=== PATIENT | male | born 1965 | race Two or more races ===

== ENCOUNTER 2018-08-22 10:15 | Emergency (ER) | payer OTHER ==
--- NOTE | 2018-08-22 11:07 | ER Document Report ---
ED Medical Screen (RME) - General Chief Complaint: Palpitations Stated Complaint: CHEST PAIN Time Seen by Provider: 08/22/18 11:05 Mode of Arrival: Wheelchair Information source: Patient Notes: This 53-year-old male presents to the emergency department with reports of shortness of breath palpitations lightheadedness, dizzy. Patient reports he had the same symptoms yesterday when he went home after work and took a shower he felt better. 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 When he went to work today he started having the same symptoms feeling short of breath dizzy like his heart was racing. He sat down and he started seeing double vision. He reports he had the same symptoms a couple months ago and was evaluated by his primary care provider and they did not find anything wrong. Patient reports he has been been hydrated. Reports he is a borderline diabetic and borderline hypertension. Denies history of cardiac disease. Reports he [place] on [place] [facility] during the week and then drives home to [place] on [place] [facility] on the weekends. EEG shows sinus rhythm. Respiratory rate even unlabored. I have greeted and performed a rapid initial assessment of this patient. A comprehensive ED assessment and evaluation of the patient, analysis of test results and completion of the medical decision making process will be conducted by additional ED providers. Dictation of this chart was performed using voice recognition software; therefore, there may be some unintended grammatical errors. TRAVEL OUTSIDE OF THE [place] IN LAST 30 DAYS: No - Related Data Allergies/Adverse Reactions: Penicillins Allergy (Verified 08/22/18 10:16) Past Medical History - Social History Chew tobacco use (# tins/day): No Frequency of alcohol use: Rare Drug Abuse: None - Past Medical History Cardiac Medical History: Reports: Hx Hypertension Renal/ Medical History: Denies: Hx Peritoneal Dialysis Past Surgical History: Reports: Hx Appendectomy Physical Exam - Vital signs Vitals: Temp Pulse Resp BP Pulse Ox 97.7 F 92 15 90/63 L 95 08/22/18 10:34 08/22/18 10:34 08/22/18 10:34 08/22/18 10:34 08/22/18 10:34 Course - Vital Signs Vital signs: Temp Pulse Resp BP Pulse Ox 97.7 F 92 15 90/63 L 95 08/22/18 10:34 08/22/18 10:34 08/22/18 10:34 08/22/18 10:34 08/22/18 10:34
[2018-08-22 11:46] LABS: ABSOLUTE BASOPHILS # (AUTO) 0.1 10^3/uL (0.0-0.2); ABSOLUTE EOSINOPHILS # (AUTO) 0.2 10^3/uL (0.0-0.6); ABSOLUTE LYMPHOCYTES (AUTO) 2.1 10^3/uL (0.5-4.7); ABSOLUTE NEUT (AUTO) 7.2 10^3/uL (1.7-8.2); BASOPHILS % (AUTO) 0.5 % (0-2); EOSINOPHILS % (AUTO) 2.2 % (0-6); HEMATOCRIT 50.9 % (37.9-51.0); HEMOGLOBIN 16.7 g/dL (13.5-17.0); LYMPHOCYTES % (AUTO) 19.9 % (13-45); MEAN CORPUSCULAR HGB CONC 32.8 g/dL (32.0-36.0); MEAN CORPUSCULAR VOLUME 85 fl (80-97); MONOCYTES % (AUTO) 9.7 % (3-13); PLATELET COUNT 246 10^3/uL (150-450); RED BLOOD COUNT 5.97 10^6/uL (4.35-5.55); SEGMENTED NEUTROPHILS % (AUTO) 67.7 % (42-78); TOTAL CELLS COUNTED % (AUTO) 100 %; WHITE BLOOD COUNT 10.7 10^3/uL (4.0-10.5)
[2018-08-22 11:49] LABS: APPEARANCE,URINE CLOUDY; BILIRUBIN,URINE NEGATIVE (NEGATIVE); COLOR,URINE AMBER; GLUCOSE, URINE NEGATIVE (NEGATIVE); KETONES,URINE NEGATIVE (NEGATIVE); LEUKOCYTE ESTERASE,URINE TRACE (NEGATIVE); NITRITE,URINE NEGATIVE (NEGATIVE); PROTEIN,URINE 100 mg/dL (NEGATIVE); URINE SPECIFIC GRAVITY 1.025; UROBILINOGEN,URINE NEGATIVE mg/dL (<2.0)
--- NOTE | 2018-08-22 11:54 | RADIOLOGY REPORT (SQ) ---
EXAM DESCRIPTION: CHEST 2 VIEWS COMPLETED DATE/TIME: 08/22/2018 11:41 am REASON FOR STUDY: sob COMPARISON: None. EXAM PARAMETERS: NUMBER OF VIEWS: two views TECHNIQUE: Digital Frontal and Lateral radiographic views of the chest acquired. RADIATION DOSE: NA LIMITATIONS: none FINDINGS: LUNGS AND PLEURA: No opacities, masses or pneumothorax. No pleural effusion. MEDIASTINUM AND HILAR STRUCTURES: No masses or contour abnormalities. HEART AND VASCULAR STRUCTURES: Heart normal size. No evidence for failure. BONES: No acute findings. HARDWARE: None in the chest. OTHER: No other significant finding. IMPRESSION: NO ACUTE RADIOGRAPHIC FINDING IN THE CHEST. TECHNICAL DOCUMENTATION: JOB ID: [id number] [employer]- All Rights Reserved Reading location - IP/workstation name: [email or web address]
[2018-08-22 12:11] LABS: ALANINE AMINOTRANSFERASE 29 U/L (21-72); ALBUMIN 5.4 g/dL (3.5-5.0); ALKALINE PHOSPHATASE 120 U/L (38-126); ANION GAP 15 (5-19); ASPARTATE AMINO TRANSFERASE 32 U/L (17-59); BILIRUBIN,DIRECT 0.4 mg/dL (0.0-0.4); BILIRUBIN,TOTAL 1.1 mg/dL (0.2-1.3); BLOOD UREA NITROGEN 21 mg/dL (7-20); CALCIUM 10.4 mg/dL (8.4-10.2); CARBON DIOXIDE 29 mmol/L (22-30); CHLORIDE 98 mmol/L (98-107); CREATINE KINASE 187 U/L (55-170); GLUCOSE 124 mg/dL (75-110); POTASSIUM 4.5 mmol/L (3.6-5.0); SODIUM 141.6 mmol/L (137-145); TOTAL PROTEIN 9.4 g/dL (6.3-8.2)
[2018-08-22] MEDS ORDERED: NORMAL SALINE 1000 ML 1,000 ML IV ONE ×2 (14:31→15:43)
--- NOTE | 2018-08-22 15:23 | ER Document Report ---
ED General - General Chief Complaint: Palpitations Stated Complaint: CHEST PAIN Time Seen by Provider: 08/22/18 11:05 Mode of Arrival: Wheelchair Information source: Patient, [facility] Records Notes: 53-year-old male with hypertension, diabetes insipidus, history of tachycardia presents with complaint of palpitations, dizziness, nausea and shortness of breath. 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 Temperature yesterday was 96 degrees. He states that he suddenly felt dizzy (described as lightheaded) became nauseous, experienced palpitations and shortness of breath. He states that after 2 hours symptoms resolved. He states again today while at work outside he experienced similar symptoms. Patient currently is only complaining of a headache which he states "I think it is because I am hungry. He denies any chest pain, shortness of breath, history of recent illness, medication changes. TRAVEL OUTSIDE OF THE [place] IN LAST 30 DAYS: No - HPI Onset: Yesterday Onset/Duration: Gradual, Persistent Quality of pain: Achy, Throbbing Associated symptoms: Headache, Nausea, Shortness of breath, Other - Lightheaded. denies: Chest pain, Nonproductive cough, Productive cough, Fever, Vomiting Exacerbated by: Denies Relieved by: Denies Similar symptoms previously: Yes Recently seen / treated by doctor: No - Related Data Allergies/Adverse Reactions: Penicillins Allergy (Verified 08/22/18 10:16) Past Medical History - General Information source: Patient - Social History Smoking Status: Never Smoker Chew tobacco use (# tins/day): No Frequency of alcohol use: Rare Drug Abuse: None Lives with: Family Family History: Reviewed & Not Pertinent Patient has suicidal ideation: No Patient has homicidal ideation: No - Past Medical History Cardiac Medical History: Reports: Hx Hypertension Renal/ Medical History: Denies: Hx Peritoneal Dialysis Past Surgical History: Reports: Hx Appendectomy Review of Systems - Review of Systems Notes: REVIEW OF SYSTEMS: CONSTITUTIONAL : Denies fever, chills, or sweats. Denies recent illness. Denies weight loss, recent hospitalizations. EENT: Denies visual changes, eye pain. Denies sore throat, oral lesions, difficulty swallowing. CARDIOVASCULAR: Denies chest pain. Denies lower extremity edema. RESPIRATORY: Denies cough. Denies wheezing. GASTROINTESTINAL: Denies abdominal pain or distention. Denies vomiting, or diarrhea. Denies blood in vomitus, stools, or per rectum. Denies black, tarry stools. Denies constipation. GENITOURINARY: Denies difficulty urinating, painful urination, frequency, blood in urine, testicular pain or penile discharge. MUSCULOSKELETAL: Denies back or neck pain or stiffness. Denies joint pain or swelling. SKIN: Denies rash, lesions or sores. HEMATOLOGIC : Denies easy bruising or bleeding. LYMPHATIC: Denies swollen glands. NEUROLOGICAL: Denies confusion or altered mental status. Denies loss of consciousness. Denies dizziness. Denies weakness or paralysis. Denies problems difficulty with ambulation, slurred speech. Denies sensory loss, numbness, or tingling. Denies seizures. PSYCHIATRIC: Denies anxiety or stress. Denies depression, suicidal ideation, or Physical Exam - Vital signs Vitals: Temp Pulse Resp BP Pulse Ox 97.7 F 92 15 90/63 L 95 08/22/18 10:34 08/22/18 10:34 08/22/18 10:34 08/22/18 10:34 08/22/18 10:34 - Notes Notes: PHYSICAL EXAMINATION: GENERAL: Well-appearing, well-nourished and in no acute distress. HEAD: Atraumatic, normocephalic. EYES: Pupils equal round and reactive to light, extraocular movements intact, sclera anicteric, conjunctiva are normal. ENT: Nares patent, oropharynx clear without exudates. Moist mucous membranes. NECK: Normal range of motion, supple without lymphadenopathy LUNGS: Breath sounds clear to auscultation bilaterally and equal. No wheezes rales or rhonchi. HEART: Regular rate and rhythm without murmurs ABDOMEN: Soft, nontender, nondistended abdomen. No guarding, no rebound. No masses appreciated. Musculoskeletal: Normal range of motion, no pitting or edema. No cyanosis. NEUROLOGICAL: Cranial nerves grossly intact. Normal speech, normal gait. Normal sensory, motor exams PSYCH: Normal mood, normal affect. SKIN: Warm, Dry, normal turgor, no rashes or lesions noted. Course - Re-evaluation Re-evalutation: Laboratory 08/22/18 08/22/18 08/22/18 11:35 11:35 11:35 WBC 10.7 H RBC 5.97 H Hgb 16.7 Hct 50.9 MCV 85 MCH 28.0 MCHC 32.8 RDW 14.0 Plt Count 246 Seg Neutrophils % 67.7 Lymphocytes % 19.9 Monocytes % 9.7 Eosinophils % 2.2 Basophils % 0.5 Absolute Neutrophils 7.2 Absolute Lymphocytes 2.1 Absolute Monocytes 1.0 Absolute Eosinophils 0.2 Absolute Basophils 0.1 Sodium 141.6 Potassium 4.5 Chloride 98 Carbon Dioxide 29 Anion Gap 15 BUN 21 H Creatinine 1.65 H Est GFR ( Amer) 53 L Est GFR (Non-Af Amer) 44 L Glucose 124 H Calcium 10.4 H Magnesium Total Bilirubin 1.1 Direct Bilirubin 0.4 Neonat Total Bilirubin Not Reportable Neonat Direct Bilirubin Not Reportable Neonat Indirect Bili Not Reportable AST 32 ALT 29 Alkaline Phosphatase 120 Creatine Kinase 187 H Troponin I < 0.012 Total Protein 9.4 H Albumin 5.4 H TSH Free T4 Free T3 pg/mL Urine Color Urine Appearance Urine pH Ur Specific Christmas Urine Protein Urine Glucose (UA) Urine Ketones Urine Blood Urine Nitrite Urine Bilirubin Urine Urobilinogen Ur Leukocyte Esterase Urine WBC (Auto) Urine RBC (Auto) U Hyaline Cast (Auto) Urine Bacteria (Auto) Squamous Epi Cells Auto Urine Mucus (Auto) Urine Ascorbic Acid 08/22/18 08/22/18 08/22/18 11:35 11:35 11:35 WBC RBC Hgb Hct MCV MCH MCHC RDW Plt Count Seg Neutrophils % Lymphocytes % Monocytes % Eosinophils % Basophils % Absolute Neutrophils Absolute Lymphocytes Absolute Monocytes Absolute Eosinophils Absolute Basophils Sodium Potassium Chloride Carbon Dioxide Anion Gap BUN Creatinine Est GFR ( Amer) Est GFR (Non-Af Amer) Glucose Calcium Magnesium 1.9 Total Bilirubin Direct Bilirubin Neonat Total Bilirubin Neonat Direct Bilirubin Neonat Indirect Bili AST ALT Alkaline Phosphatase Creatine Kinase Troponin I Total Protein Albumin TSH 2.31 Free T4 1.08 Free T3 pg/mL 4.35 Urine Color RADHA Urine Appearance CLOUDY Urine pH 5.0 Ur Specific Christmas 1.025 Urine Protein 100 H Urine Glucose (UA) NEGATIVE Urine Ketones NEGATIVE Urine Blood NEGATIVE Urine Nitrite NEGATIVE Urine Bilirubin NEGATIVE Urine Urobilinogen NEGATIVE Ur Leukocyte Esterase TRACE H Urine WBC (Auto) 9 Urine RBC (Auto) 3 U Hyaline Cast (Auto) 49 Urine Bacteria (Auto) TRACE Squamous Epi Cells Auto <1 Urine Mucus (Auto) OCC Urine Ascorbic Acid 40 H Chest X-Ray 08/22/18 11:14 IMPRESSION: NO ACUTE RADIOGRAPHIC FINDING IN THE CHEST. Temp Pulse Resp BP Pulse Ox 97.7 F 92 15 90/63 L 95 08/22/18 10:34 08/22/18 10:34 08/22/18 10:34 08/22/18 10:34 08/22/18 10:34 08/22/18 15:48 53-year-old male presents with lightheadedness, nausea, headache, shortness of breath for 2 days while working in the heat. Denies ever having any chest pain. Symptoms have all resolved except for a headache. Patient initially hypotensive but repeat blood pressure shows improvement and is currently 100/73. Patient received will receive an additional liter of IV fluids. 08/22/18 16:43 CBC is without leukocytosis or anemia. CMP does show mild ASHLEY with a creatinine 1.65 likely secondary to dehydration. No other electrolyte abnormalities appreciated. Patient's thyroid panel within normal limits. Patient advised to stay home from work for the next 48 hours and stay hydrated and out of the heat. Patient also advised to follow-up with his primary care physician for repeat blood work to assess that patient's creatinine has improved. 08/22/18 22:04 Patient presents with palpitations but is in no acute distress. Vitals within normal limits at time of arrival. EKG unremarkable with a normal sinus rhythm. Laboratories are unremarkable. Patient denies any chest pain, shortness of breath, or vomiting. At this time based on exam and history do not suspect a new onset arrhythmia, ACS, acute pulmonary embolus, aortic dissection. Suspect patient's symptoms are secondary to dehydration, prolonged heat exposure. Patient encouraged to follow-up with their primary care physician. At this time will discharge with return precautions and follow-up recommendations. Verbal discharge instructions given a the bedside and opportunity for questions given. Medication warnings reviewed. Patient is in agreement with this plan and has verbalized understanding of return precautions and the need for primary care follow-up in the next 24-72 hours. - Vital Signs Vital signs: Temp Pulse Resp BP Pulse Ox 98.1 F 84 16 103/76 100 08/22/18 18:00 08/22/18 18:00 08/22/18 18:00 08/22/18 18:00 08/22/18 18:00 - Laboratory Result Diagrams: 08/22/18 11:35 08/22/18 11:35 Laboratory results interpreted by me: 08/22/18 08/22/18 08/22/18 11:35 11:35 11:35 WBC 10.7 H RBC 5.97 H BUN 21 H Creatinine 1.65 H Est GFR ( Amer) 53 L Est GFR (Non-Af Amer) 44 L Glucose 124 H Calcium 10.4 H Creatine Kinase 187 H Total Protein 9.4 H Albumin 5.4 H Urine Protein 100 H Ur Leukocyte Esterase TRACE H Urine Ascorbic Acid 40 H - Diagnostic Test Radiology reviewed: Image reviewed, Reports reviewed - EKG Interpretation by Me EKG shows normal: Sinus rhythm Rate: Normal Rhythm: NSR When compared to previous EKG there are: Previous EKG unavailable Discharge - Discharge Clinical Impression: Acute kidney injury, Dehydration, Near syncope Condition: Good Disposition: HOME, SELF-CARE Instructions: Dehydration ([facility]), Dizziness ([facility]), Kidney Injury ([facility]), Near Syncopal Episode ([facility]), Palpitations (Irregular or Rapid Heartrate) ([facility]) Additional Instructions: Please be sure to drink plenty of fluids while out in the heat. You can purchase packets of electrolyte replacement solutions such as Pedialyte or propel that you can add to plain water. This will help to make sure that you are getting adequate electrolytes in addition to fluids while working outside. Please return to the emergency department if you pass out, developed diffuse muscle cramping, have persistent vomiting, or have any other symptoms that are worrisome to you. Forms: Return to Work
[2018-08-22] MEDS ORDERED: DIPHENHYDRAMINE HCL 50 MG/ML VIAL IV ONE (15:43)
[2018-08-22] MEDS ORDERED: METOCLOPRAMIDE HCL INJ/PF 10 MG/2 ML SDV IV ONE (15:43)
[2018-08-22 16:20] LABS: FREE T3 4.35 pg/mL (2.77-5.27); FREE T4 (FREE THYROXINE) 1.08 ng/dL (0.78-2.19)
[2018-08-22 16:33] LABS: THYROID STIMULATING HORMONE 2.31 uIU/mL (0.47-4.68)
[2018-08-22] MEDS ORDERED: RINGERS SOLUTION,LACTATED 1,000 ML IV ONE (16:45)
[2018-08-22 18:03] VITALS: BP 103/76
--- NOTE | 2018-08-22 18:48 | EKG REPORT ---
SEVERITY:- NORMAL ECG - SINUS RHYTHM : Confirmed by: Aron Caro MD 22-Aug-2018 18:48:33
== END 2018-08-22 18:00 | disposition home or self-care (01) ==
LOC: ER 10:15
DX: E86.0 Dehydration (principal); N17.9 Acute kidney failure, unspecified; R55 Syncope and collapse; E23.2 Diabetes insipidus; I10 Essential (primary) hypertension; R51 Headache; R06.02 Shortness of breath; R11.0 Nausea; Z88.0 Allergy status to penicillin; R00.2 Palpitations
CPT/HCPCS: 93005; 99285; 96361; 96374; 36415; 84439; 82550; 83735; 84443; 85025; 80053; 81001; 84484; 84481; 71046; 93010; J1200; J7030; J7120

== ENCOUNTER 2019-08-02 05:33 | Emergency (ER) | payer OTHER ==
--- NOTE | 2019-08-02 06:48 | RADIOLOGY REPORT (SQ) ---
EXAM DESCRIPTION: XR KNEE 4 OR MORE VIEWS COMPLETED DATE/TME: 08/02/2019 05:50 CLINICAL HISTORY: 54 years, Male, fall, swelling, tenderness COMPARISON: None. NUMBER OF VIEWS: 4 TECHNIQUE: 4 views of the right knee LIMITATIONS: None. FINDINGS: Negative for acute fracture or dislocation. Soft tissues are unremarkable. Mild degenerative change of the patellofemoral compartment IMPRESSION: No acute osseous abnormality copyright 2010 [employer]- All Rights Reserved
--- NOTE | 2019-08-02 08:39 | ER Document Report ---
HPI - HPI Patient complains to provider of: Right knee pain Time Seen by Provider: 08/02/19 08:20 Onset: Yesterday Onset/Duration: Gradual Quality of pain: Sharp Pain Level: 2 Context: Patient states yesterday he was at work and felt from a landed helicopter from a height of about 5 feet. Patient states he landed on his buttocks. Patient states that his right knee gradually started to hurt throughout the day as well started to swell. Associated Symptoms: denies: Nausea Exacerbated by: Standing, Movement, Walking Relieved by: Denies Similar symptoms previously: No Recently seen / treated by doctor: No - ROS ROS below otherwise negative: Yes Systems Reviewed and Negative: Yes All other systems reviewed and negative - CONSTITUTIONAL Constitutional: DENIES: Fever - NEURO Neurology: DENIES: Weakness - GASTROINTESTINAL Gastrointestinal: DENIES: Nausea - MUSCULOSKELETAL Musculoskeletal: REPORTS: Extremity pain, Back Pain - DERM Skin Color: Normal Skin Problems: Abrasion Past Medical History - General Information source: Patient - Social History Smoking Status: Never Smoker Chew tobacco use (# tins/day): No Frequency of alcohol use: Occasional Drug Abuse: None 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 IN LAST 30 DAYS: No - HEENT HEENT: Atraumatic, Normocephalic - NECK Neck: Normal Inspection, Supple - RESPIRATORY Respiratory: Breath Sounds Normal, No Respiratory Distress - CARDIOVASCULAR Cardiovascular: Regular Rate, Regular Rhythm - BACK Back: Abnormal Inspection - Lower lumbar paraspinal tenderness, no midline vomiting. negative: CVA Tenderness-Right, CVA Tenderness-Left - MUSCULOSKELETAL/EXTREMETIES Musculoskeletal/Extremeties: MAEW, FROM, Tender - Right knee joint tenderness to the medial compartment, mild joint effusion, no laxity with varus or valgus maneuvers, Edema. negative: Eccymosis - NEURO Level of Consciousness: Awake, Alert, Appropriate Motor/Sensory: No Motor Deficit - DERM Integumentary: Warm, Dry, No Rash Course - Re-evaluation Re-evalutation: 08/02/19 08:37 Patient without any acute fracture noted on x-ray, patient does have some mild degenerative changes. Patient with lower lumbar paraspinal tenderness, offered patient imaging, patient declines does not feel that he has a significant injury requiring x-ray of the lumbar spine at this time. - Vital Signs Vital signs: Temp Pulse Resp BP Pulse Ox 99.5 F 87 18 134/89 H 98 08/02/19 05:47 08/02/19 05:47 08/02/19 05:47 08/02/19 05:47 08/02/19 05:47 - Diagnostic Test Radiology reviewed: Reports reviewed Procedures - Immobilization Right Knee Pre-Proc Neuro Vasc Exam: Normal Immobilizer type: Amadou wrap, Knee immobilizer Performed by: PCT Post-Proc Neuro Vasc Exam: Normal Discharge - Discharge Clinical Impression: Multiple abrasions Right knee sprain Qualifiers: Encounter type: initial encounter Involved ligament of knee: unspecified ligament Qualified Code(s): S83.91XA - Sprain of unspecified site of right knee, initial encounter Low back pain Qualifiers: Chronicity: acute Back pain laterality: left Sciatica presence: unspecified whether sciatica present Qualified Code(s): M54.5 - Low back pain Condition: Stable Disposition: HOME, SELF-CARE Instructions: Use of Crutches ([facility]), Ice & Elevation ([facility]), Suspected Internal Knee Injury ([facility]), Knee Immobilizing Splint ([facility]), Oral Narcotic Medication ([facility]), Sprained Knee ([facility]) Additional Instructions: Return immediately for any new or worsening symptoms Followup with your primary care provider, call tomorrow to make a followup appointment Weightbearing as tolerated follow-up with orthopedics for any persistent pain or problems Prescriptions: Cyclobenzaprine HCl [Flexeril 10 Mg Tablet] 10 mg PO TID #15 tablet Lidocaine [Lidoderm 5% (700 mg) Transdermal Patch] 1 patch TP DAILY PRN #10 adh..patch PRN Reason: Hydrocodone/Acetaminophen [[place] 5-325 mg Tablet] 1 tab PO Q6 PRN #15 tablet PRN Reason: Forms: Return to Work Referrals: [facility] - Follow up as needed [facility] [Provider Group] - Follow up as needed [facility] [Provider Group] - Follow up as needed
[2019-08-02] MEDS ORDERED: HYDROCODONE/ACETAMINOPHEN 5-325 MG TABLET PO ONE (08:40)
[2019-08-02 09:25] VITALS: BP 129/94
== END 2019-08-02 09:44 | disposition home or self-care (01) ==
LOC: ER 05:33
DX: S83.91XA Sprain of unspecified site of right knee, initial encounter (principal); T14.8XXA Other injury of unspecified body region, initial encounter; M25.561 Pain in right knee; M54.9 Dorsalgia, unspecified; W17.89XA Other fall from one level to another, initial encounter; I10 Essential (primary) hypertension; E11.9 Type 2 diabetes mellitus without complications; Y99.0 Civilian activity done for income or pay
CPT/HCPCS: 99283